=== PATIENT | female | born 1995 | race African-American/Black ===

== ENCOUNTER → 2019-03-23 | Outpatient (CLI) | payer MEDICAID ==
--- NOTE | 2019-03-23 15:14 | RADIOLOGY REPORT (SQ) ---
EXAM DESCRIPTION: U/S OB 14+ TRNABD 1GES W/O DOP COMPLETED DATE/TIME: 03/23/2019 2:08 pm REASON FOR STUDY: ENCTR FOR SUPERVISION OF OTHER NORMAL , 3RD TRIMESTER (Z34.83) Z34.83 EN COUNTER FOR SUPRVSN OF NORMAL , THIRD TRIM COMPARISON: None. TECHNIQUE: Static and Dynamic grayscale imaging performed of gravid uterus using transabdominal appr oach. Additional selected color Doppler and spectral images recorded. All stored on PACS. LIMITATIONS: None. FINDINGS: FETUSES SEEN:1 EGA: 35 week 3 day. Calculated using BPD,FL,HC,AC documented on images. Clinical dates 36 week 2 day . ZULY: 04/24/2019. EFW: 2,809 grams PERCENTILE: 42%. SANJUANA: 23.2 cm. PLACENTA: Anterior. GRADE: I PRESENTATION: Cephalic. ANATOMY: HEART RATE: 145 beats per minute. FOUR CHAMBER HEART: Visualized. THREE VESSEL CORD: Yes. CORD INSERTION: Visualized. KIDNEYS AND BLADDER: Mild prominence of the renal pelvis of both kidneys. Bladder unremarkable. STOMACH: Visualized. Appears normal. SPINE: Normal as visualized. BRAIN AND LATERAL VENTRICLES: Visualized. Appear normal. OTHER: No other significant finding. MATERNAL ADNEXA: Maternal ovaries not visualized. CERVICAL LENGTH: Not visualized. OTHER: No other significant finding. IMPRESSION: LIVING INTRAUTERINE . ESTIMATED GESTATIONAL AGE 35 WEEK 3 DAY. MILD PROMINENCE OF THE RENAL PELVIS OF BOTH KIDNEYS. WILL NEED FOLLOW-UP ULTRASOUND OF THE KIDNEYS T O RE-EVALUATE THIS FINDING. Trimester of : Third trimester - 28 weeks to delivery. TECHNICAL DOCUMENTATION: JOB ID: [id number]- All Rights Reserved Reading location - IP/workstation name: [email or web address]
== END ==
LOC: RAD 13:08
PROVIDERS: ATTEND Midwife
DX: Z34.83 Encounter for supervision of other normal pregnancy, third trimester (principal); Z3A.35 35 weeks gestation of pregnancy
CPT/HCPCS: 76805

== ENCOUNTER 2019-04-08 03:23 | Inpatient (IN) | payer MEDICAID ==
[2019-04-08] MEDS ORDERED: LIDOCAINE 1% INJ-PF (10 MG/ML) 30 ML SDV ONE (03:40)
[2019-04-08] MEDS ORDERED: OXYTOCIN/NORMAL SALINE 20 UNIT/1,000 ML RTUINJ ONE (03:40)
[2019-04-08] MEDS ORDERED: MISOPROSTOL 0.2 MG TABLET ONE (03:40)
[2019-04-08] MEDS ORDERED: PENICILLIN G-K 5 MILLION UNIT VIAL ONE (03:41)
[2019-04-08] MEDS ORDERED: PENICILLIN G POTASSIUM 5,000,000 UNIT in DEXTROSE 5%-WATER 100 ML IV ONE (03:43)
[2019-04-08] MEDS ORDERED: RINGERS SOLUTION,LACTATED 1,000 ML IV PRN (03:43)
[2019-04-08 04:38] LABS: APPEARANCE,URINE CLEAR; BILIRUBIN,URINE NEGATIVE (NEGATIVE); COLOR,URINE YELLOW; GLUCOSE, URINE NEGATIVE (NEGATIVE); KETONES,URINE NEGATIVE (NEGATIVE); LEUKOCYTE ESTERASE,URINE SMALL (NEGATIVE); NITRITE,URINE NEGATIVE (NEGATIVE); PROTEIN,URINE 30 mg/dL (NEGATIVE); URINE SPECIFIC GRAVITY 1.012; UROBILINOGEN,URINE NEGATIVE mg/dL (<2.0)
[2019-04-08 04:55] LABS: URINE AMPHETAMINES SCREEN NEGATIVE; URINE BARBITURATES SCREEN NEGATIVE; URINE BENZODIAZEPINES SCREEN NEGATIVE; URINE COCAINE SCREEN NEGATIVE; URINE MARIJUANA (THC) SCREEN NEGATIVE; URINE METHADONE SCREEN NEGATIVE; URINE PHENCYCLIDINE SCREEN NEGATIVE
[2019-04-08 05:25] LABS: ABSOLUTE LYMPHOCYTES (AUTO) 1.4 10^3/uL (0.5-4.7); ABSOLUTE MONOCYTES (AUTO) 0.7 10^3/uL (0.1-1.4); ABSOLUTE NEUT (AUTO) 4.7 10^3/uL (1.7-8.2); BASOPHILS % (AUTO) 0.2 % (0-2); EOSINOPHILS % (AUTO) 0.4 % (0-6); HEMOGLOBIN 11.3 g/dL (12.0-15.5); LYMPHOCYTES % (AUTO) 19.8 % (13-45); MEAN CORPUSCULAR HEMOGLOBIN 27.7 pg (27.0-33.4); MEAN CORPUSCULAR HGB CONC 33.3 g/dL (32.0-36.0); MEAN CORPUSCULAR VOLUME 83 fl (80-97); MONOCYTES % (AUTO) 10.6 % (3-13); PLATELET COUNT 158 10^3/uL (150-450); RED BLOOD COUNT 4.08 10^6/uL (3.72-5.28); RED CELL DISTRIBUTION WIDTH 14.2 % (11.5-14.0); TOTAL CELLS COUNTED % (AUTO) 100 %; WHITE BLOOD COUNT 6.8 10^3/uL (4.0-10.5)
--- NOTE | 2019-04-08 06:19 | Admission Physical ---
Datetime Report Generated by CPN: 04/08/2019 06:19 CURRENT ADMISSION Chief Complaint: Uterine Contractions Indication for Induction: Not Applicable Admit Impression : Term, Intrauterine ; Active Labor Admit Plan: Admit to Unit ALLERGIES Medication Allergies: No Known Allergies (04/08/2019) OBSTETRICAL HISTORY EDC: 05/01/2019 00:00 : 2 Para: 1 Gestational Diabetes: No Rh Sensitization: No Incompetent Cervix: No IKER: No Infertility: No ART Treatment: No Uterine Anomaly: No IUGR: No Hx Previous C/S: No Macrosomia: No Hx Loss/Stillborn: No PIH: No Hx : No Placenta Previa/Abruption: No Depression/PP Depression: No PTL/PROM: No Post Hemorrhage: No Current Procedures: Ultrasound; NST Obstetrical History Comments: 01/2018 epidural baby girl g2 - current - GBS +, renal distension noted on u/s SEE RECORDS Alcohol: No Marijuana : No Cocaine: No Other Illicit Drugs: No Cigarettes: Never Smoker. 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 Surgery: No Heart Disease: No Hosp/Surgery: No Autoimmune Disorder: No Anesthetic Complications: No Kidney Disease: No Abnormal Pap Smear: No Neuro/Epilepsy: No Psychiatric Disorders: No Other Medical Diseases: No Hepatitis/Liver Disease: No Significant Family History: No Varicosities/Phlebitis: No Trauma/Violence : No Thyroid Dysfunction: No INFECTIOUS HISTORY Gonorrhea: No Genital Herpes: No Chlamydia: No Tuberculosis: No Syphilis: No Hepatitis: No HIV/AIDS Exposure: No Rash or Viral Illness: No HPV: No PHYSICAL EXAM General: Normal HEENT: Normal Neurologic: Normal Thyroid: Normal Heart: Normal Lungs: Normal Breast: Deferred Back: Normal Abdomen: Normal Genitourinary Exam: Normal Extremities: Normal DTRs: Normal Pelvic Type: Adequate Vital Signs: Reviewed VAGINAL EXAM Dilatation: 8 Effacement: 100 Station: 0 MEMBRANES Pooling: Negative Membranes: Intact FETUS A EGA: 36.5 Monitoring: External US FHR- Baseline: 120 Decelerations: None FHR Category: Category I Presentation: Vertex Admit Comment: Admit for labor PLANS FOR LABOR AND DELIVERY Labor and Delivery: None Pain Management: None Feeding Preference: Breast Benefit of Breast Feed Discussed: Yes Circumcision: Yes INFORMED CONSENT Signature: with User ID: [email or web address]
[2019-04-08] MEDS ORDERED: PROMETHAZINE HCL 25 MG TABLET PO PRN (06:57)
[2019-04-08] MEDS ORDERED: PROMETHAZINE HCL 25 MG SUPP.RECT PR PRN (06:57)
[2019-04-08] MEDS ORDERED: GLYCERIN/WITCH HAZEL LEAF 1 EACH MED..WIPE TP PRN (06:57)
[2019-04-08] MEDS ORDERED: ACETAMINOPHEN 650 MG SUPP.RECT PR PRN (06:57)
[2019-04-08] MEDS ORDERED: PSEUDOEPHEDRINE HCL 30 MG TABLET PO PRN (06:57)
[2019-04-08] MEDS ORDERED: BENZOCAINE/MENTHOL AEROSOL SPRAY 56 ML TOP PRN (06:57)
[2019-04-08] MEDS ORDERED: ZOLPIDEM TARTRATE 5 MG TABLET PO PRN (06:57)
[2019-04-08] MEDS ORDERED: DIBUCAINE 1% OINTMENT 28 GM TP PRN (06:57)
[2019-04-08] MEDS ORDERED: MEASLES,MUMPS&RUBELLA VACC/PF 0.5 ML VIAL SUBCUT PRN (06:57)
[2019-04-08] MEDS ORDERED: PROMETHAZINE HCL INJ 25 MG/1 ML VIAL IV PRN (06:57)
[2019-04-08] MEDS ORDERED: NA PHOS,M-B/NA PHOS,DI-BA (ADULT) 133 ML ENEMA PR PRN (06:57)
[2019-04-08] MEDS ORDERED: MAGNESIUM HYDROXIDE SUSP 30 ML UDCUP PO PRN (06:57)
[2019-04-08] MEDS ORDERED: DIPHENHYDRAMINE HCL 25 MG CAPSULE PO PRN (06:57)
[2019-04-08] MEDS ORDERED: ACETAMINOPHEN WITH CODEINE #3 TABLET PO PRN ×2 (06:57)
[2019-04-08] MEDS ORDERED: OXYTOCIN/NORMAL SALINE 20 UNIT/1,000 ML RTUINJ IV PRN (06:57)
[2019-04-08] MEDS ORDERED: DIPH/PERTUSS(ACELL)/TETANUS VAC/PF 0.5 ML SYR (>=10YO) IM PRN (06:57)
[2019-04-08] MEDS: PENICILLIN G POTASSIUM 2,500,000 UNIT in DEXTROSE 5%-WATER 50 ML IV SCH ×4 (08:34→20:51)
[2019-04-08] MEDS ORDERED: IBUPROFEN 800 MG TABLET ONE (08:38)
--- NOTE | 2019-04-08 08:49 | Delivery Summary ---
Del Sum A-C Datetime Report Generated by CPN: 04/08/2019 08:48 DELIVERY PERSONNEL DELIVERY PERSONNEL: [id number] Delivery Doctor:: Carmen Spencer MD Labor and Delivery Nurse:: Afshan Montgomery RN Labor and Delivery Nurse:: Sandra Melendez RN Roll Press Operator/TOP FRAME MAKER: Johannayuli Ledesma, ST MATERNAL INFORMATION Delivery Anesthesia: None Medications After Delivery: Pitocin Bolus-Please Comment Meds After Delivery Comment: pitocin bolus 20 units in 1000 ml NSS Estimated Blood Loss (ml): 250 Maternal Complications: None Complication Details: labor LABOR SUMMARY EDC: 05/01/2019 00:00 No. Babies in Womb: 1 Attempted: No Labor Anesthesia: None LABOR INFORMATION Reason for Induction: Not Applicable Onset of Labor: 04/08/2019 00:00 Complete Dilatation: 04/08/2019 06:40 Oxytocin: N/A Group B Beta Strep: positive Antibiotics # of Doses: 1 Antibiotics Time of Last Dose: 348 Name of Antibiotic Given: PCN Steroids Given: None Reason Steroids Not Administered: Not Applicable MEMBRANES Membranes Rupture Method: Artificial Rupture of Membranes: 04/08/2019 06:40 Length of Rupture (hr): 0.13 Amniotic Fluid Color: Clear Amniotic Fluid Amount: Moderate Amniotic Fluid Odor: Normal STAGES OF LABOR Stage 1 hr: 6 Stage 1 min: 40 Stage 2 hr: 0 Stage 2 min: 8 Stage 3 hr: 0 Stage 3 min: 4 Total Time in Labor hr: 6 Total Time in Labor min: 52 VAGINAL DELIVERY Episiotomy: None Laceration #1: None Laceration Extension #1: N/A Laceration #2: None Laceration Extension #2: N/A Laceration #3: None Laceration Extension #3: N/A Laceration Repair: Not Applicable Laceration Repair Note: No laceration in need of repair Sponge Count Correct: Vaginal Sweep Performed Sharps Count Correct: Yes CSECTION DELIVERY Primary Indication: N/A Secondary Indication: N/A CSection Incidence: N/A Labor: N/A Elective: N/A CSection Incision: N/A BABY A INFORMATION Infant Delivery Date/Time: 04/08/2019 06:48 Method of Delivery: Vaginal Born in Route : No : N/A Forceps: N/A Vacuum Extraction: N/A Shoulder Dystocia : No PRESENTATION/POSITION BABY A Presentation: Cephalic Cephalic Presentation: Vertex Vertex Position: Right Occipital Anterior Breech Presentation: N/A PLACENTA INFORMATION BABY A Placenta Delivery Time : 04/08/2019 06:52 Placenta Method of Delivery: Spontaneous Placenta Status: Delivered SCORES BABY A Heart Rate 1 min: >100 bpm Resp Effort 1 min: Good Cry Reflex Irritability 1 min: Cough or Sneeze or Pulls Away Muscle Tone 1 min: Active Motion Color 1 min: Blue/Pale Resuscitation Effort 1 min: Tactile Stimulation SCORE 1 MIN: 8 Heart Rate 5 min: >100 bpm Resp Effort 5 min: Good Cry Reflex Irritability 5 min: Cough or Sneeze or Pulls Away Muscle Tone 5 min: Active Motion Color 5 min: Body Point Roberts, Extremities Blue Resuscitation Effort 5 min: Tactile Stimulation SCORE 5 MIN: 9 INFANT INFORMATION BABY A Gestational Age at Delivery: 36.5 Gestational Status: Late - 34- 36.6 Weeks Infant Outcome : Liveborn Infant Condition : Stable Sex: Male IDENTIFICATION BABY A Infant Verification Date/Time: 04/08/2019 07:34 ID Band Number: [id number] Mother's Name Verified: Yes Infant RN Verifying : REllie Casas, RN/H. Tigre, CNM WEIGHT/LENGTH BABY A Birthweight (gm): 3040 Infant Weight (lb): 6 Weight (oz): 11 Length (in): 18.75 Infant Length (cm): 47.63 CORD INFORMATION BABY A No. Cord Vessels: 3 Nuchal Cord : N/A Cord Blood Taken: Yes-For Eval (Mom's Blood Type - or O+) Infant Suction: None ASSESSMENT BABY A Infant Complications: None Physical Findings at Delivery: Within Normal Limits Respirations: Appears Normal Skin to Skin: Yes Skin to Skin Time (min): 60 Transferred To: Remains with Mother BABY B INFORMATION : N/A SIGNATURES Signature: with User ID: [email or web address]
[2019-04-08] MEDS: PRENATAL VITAMIN W DHA CAPSULE PO SCH (09:38)
[2019-04-08] MEDS: SENNOSIDES/DOCUSATE 8.6-50 MG 1 EACH TABLET PO SCH (09:38)
[2019-04-08] MEDS: DOCUSATE SODIUM 100 MG CAPSULE PO SCH ×2 (09:38→18:03)
[2019-04-08] MEDS: FERROUS SULFATE 325 MG TABLET PO SCH ×2 (09:38→18:03)
[2019-04-08] MEDS: FAMOTIDINE 20 MG TABLET PO SCH ×2 (09:40→21:09)
[2019-04-08] MEDS: IBUPROFEN 800 MG TABLET PO SCH ×2 (14:59→21:07)
[2019-04-08] MEDS ORDERED: ACETAMINOPHEN 325 MG TABLET PO PRN (21:00)
[2019-04-09] MEDS: PENICILLIN G POTASSIUM 2,500,000 UNIT in DEXTROSE 5%-WATER 50 ML IV SCH ×2 (01:03→05:06)
[2019-04-09] MEDS: IBUPROFEN 800 MG TABLET PO SCH ×3 (05:07→21:29)
[2019-04-09 07:35] LABS: HEMATOCRIT 31.3 % (36.0-47.0); HEMOGLOBIN 10.6 g/dL (12.0-15.5); MEAN CORPUSCULAR HGB CONC 33.8 g/dL (32.0-36.0); MEAN CORPUSCULAR VOLUME 83 fl (80-97); PLATELET COUNT 153 10^3/uL (150-450); RED BLOOD COUNT 3.77 10^6/uL (3.72-5.28); RED CELL DISTRIBUTION WIDTH 14.6 % (11.5-14.0); WHITE BLOOD COUNT 8.6 10^3/uL (4.0-10.5)
--- NOTE | 2019-04-09 09:34 | PDOC PROGRESS REPORT ---
Subjective-OB Progress Note for:: 04/09/19 Subjective: Doing well, feeding baby, desires circumcision, will pay in AM, voiding, scant lochia Physical Exam (OB) Vital Signs: Temp Pulse Resp BP Pulse Ox 98.4 F 62 16 112/63 99 04/09/19 07:33 04/09/19 07:33 04/09/19 07:33 04/09/19 07:33 04/09/19 07:33 Intake & Output 04/08/19 04/09/19 04/10/19 06:59 06:59 06:59 Intake Total 300 Balance 300 Weight 67 kg - PIH/Pre-Eclampsia DTR's: 1 + Clonus: Negative Headache: Absent Epigastric Pain: No Visual Changes: No - Lochia Lochia Amount: Small 10-25 ml Lochia Color: Rubra/Red - Abdomen Description: Soft Hernia Present: No Fundal Description: Firm, Midline Fundal Height: u/u - u/2 Objective-Diagnostic Laboratory: 04/09/19 06:56 04/09/19 06:56 WBC 8.6 RBC 3.77 Hgb 10.6 L Hct 31.3 L MCV 83 MCH 28.0 MCHC 33.8 RDW 14.6 H Plt Count 153 Assessment and Plan(PN) - Assessment and Plan (1) Late care Is this a current diagnosis for this admission?: Yes (2) delivery Is this a current diagnosis for this admission?: Yes (3) GBS (group B Streptococcus carrier), +RV culture, currently Is this a current diagnosis for this admission?: Yes - Time Spent with Patient Time with patient: Less than 15 minutes Medications reviewed and adjusted accordingly: Yes - Disposition Anticipated Discharge: Home Within: within 24 hours
[2019-04-09] MEDS: SENNOSIDES/DOCUSATE 8.6-50 MG 1 EACH TABLET PO SCH (10:03)
[2019-04-09] MEDS: DOCUSATE SODIUM 100 MG CAPSULE PO SCH ×2 (10:03→17:17)
[2019-04-09] MEDS: FAMOTIDINE 20 MG TABLET PO SCH ×2 (10:03→21:29)
[2019-04-09] MEDS: FERROUS SULFATE 325 MG TABLET PO SCH ×2 (10:03→17:17)
[2019-04-09] MEDS: PRENATAL VITAMIN W DHA CAPSULE PO SCH (10:03)
[2019-04-10] MEDS: IBUPROFEN 800 MG TABLET PO SCH ×2 (06:27→13:57)
[2019-04-10 07:38] VITALS: BP 112/61
--- NOTE | 2019-04-10 08:58 | PDOC PROGRESS REPORT ---
Subjective-OB Progress Note for:: 04/10/19 Subjective: Doing well, no c/o, family at [facility], ready to go home, , desires circumcision Physical Exam (OB) Vital Signs: Temp Pulse Resp BP Pulse Ox 97.9 F 74 16 112/61 100 04/10/19 07:16 04/10/19 07:16 04/10/19 07:16 04/10/19 07:16 04/10/19 07:16 Intake & Output 04/09/19 04/10/19 04/11/19 06:59 06:59 06:59 Intake Total 300 Balance 300 Weight 67 kg - PIH/Pre-Eclampsia DTR's: 1 + Clonus: Negative Headache: Absent Epigastric Pain: No Visual Changes: No - Lochia Lochia Amount: Scant < 10 ml Lochia Color: Rubra/Red - Abdomen Description: Soft Hernia Present: No Fundal Description: Firm, Midline Fundal Height: u/u - u/2 Objective-Diagnostic Laboratory: 04/09/19 06:56 Assessment and Plan(PN) - Assessment and Plan (1) Late care Is this a current diagnosis for this admission?: Yes (2) delivery Is this a current diagnosis for this admission?: Yes (3) GBS (group B Streptococcus carrier), +RV culture, currently Is this a current diagnosis for this admission?: Yes - Time Spent with Patient Time with patient: Less than 15 minutes Medications reviewed and adjusted accordingly: Yes - Disposition Anticipated Discharge: Home Within: within 24 hours
--- NOTE | 2019-04-10 09:03 | PDOC DISCHARGE SUMMARY ---
Impression - Admit/DC Date/PCP Admission Date/Primary Care Provider: 04/08/19 03:44 WILLIAMS POST CNM Discharge Date: 04/10/19 - Discharge Diagnosis (1) Late care Is this a current diagnosis for this admission?: Yes (2) delivery Is this a current diagnosis for this admission?: Yes (3) GBS (group B Streptococcus carrier), +RV culture, currently Is this a current diagnosis for this admission?: Yes - Additional Information Resuscitation Status: Full Code Discharge Diet: As Tolerated, Regular Discharge Activity: Activity As Tolerated, Pelvic Rest Referrals: REEMA POST MD [ACTIVE STAFF] - (wha 4 weeks) HPI Gestational Age: 36+5 Reason(s) for Admission: Onset of Labor, Group B Strep Positive Procedures: Ultrasound Intrapartum Procedure(s): Spontaneous Vaginal Delivery - boy, 6-11, 8/9 apgars Hospital Course Hospital Course: routine Results Laboratory Results: WBC 8.6 10^3/uL (4.0-10.5) 04/09/19 06:56 RBC 3.77 10^6/uL (3.72-5.28) 04/09/19 06:56 Hgb 10.6 g/dL (12.0-15.5) L 04/09/19 06:56 Hct 31.3 % (36.0-47.0) L 04/09/19 06:56 MCV 83 fl (80-97) 04/09/19 06:56 MCH 28.0 pg (27.0-33.4) 04/09/19 06:56 MCHC 33.8 g/dL (32.0-36.0) 04/09/19 06:56 RDW 14.6 % (11.5-14.0) H 04/09/19 06:56 Plt Count 153 10^3/uL (150-450) 04/09/19 06:56 Lymph % (Auto) 19.8 % (13-45) 04/08/19 04:34 [place] % (Auto) 10.6 % (3-13) 04/08/19 04:34 Eos % (Auto) 0.4 % (0-6) 04/08/19 04:34 Baso % (Auto) 0.2 % (0-2) 04/08/19 04:34 Absolute Neuts (auto) 4.7 10^3/uL (1.7-8.2) 04/08/19 04:34 Absolute Lymphs (auto) 1.4 10^3/uL (0.5-4.7) 04/08/19 04:34 Absolute Monos (auto) 0.7 10^3/uL (0.1-1.4) 04/08/19 04:34 Absolute Eos (auto) 0.0 10^3/uL (0.0-0.6) 04/08/19 04:34 Absolute Basos (auto) 0.0 10^3/uL (0.0-0.2) 04/08/19 04:34 Seg Neutrophils % 69.0 % (42-78) 04/08/19 04:34 Urine Color YELLOW 04/08/19 03:33 Urine Appearance CLEAR 04/08/19 03:33 Urine pH 7.0 (5.0-9.0) 04/08/19 03:33 Ur Specific [place] 1.012 04/08/19 03:33 Urine Protein 30 mg/dL (NEGATIVE) H 04/08/19 03:33 Urine Glucose (UA) NEGATIVE mg/dL (NEGATIVE) 04/08/19 03:33 Urine Ketones NEGATIVE mg/dL (NEGATIVE) 04/08/19 03:33 Urine Blood LARGE (NEGATIVE) H 04/08/19 03:33 Urine Nitrite NEGATIVE (NEGATIVE) 04/08/19 03:33 Urine Bilirubin NEGATIVE (NEGATIVE) 04/08/19 03:33 Urine Urobilinogen NEGATIVE mg/dL (<2.0) 04/08/19 03:33 Ur Leukocyte Esterase SMALL (NEGATIVE) H 04/08/19 03:33 Urine Ascorbic Acid NEGATIVE (NEGATIVE) 04/08/19 03:33 Urine Opiates Screen NEGATIVE 04/08/19 03:33 Urine Methadone Screen NEGATIVE 04/08/19 03:33 Ur Barbiturates Screen NEGATIVE 04/08/19 03:33 Ur Phencyclidine Scrn NEGATIVE 04/08/19 03:33 Ur Amphetamines Screen NEGATIVE 04/08/19 03:33 U Benzodiazepines Scrn NEGATIVE 04/08/19 03:33 Urine Cocaine Screen NEGATIVE 04/08/19 03:33 U Marijuana (THC) Screen NEGATIVE 04/08/19 03:33 RPR NONREACTIVE (NONREACTIVE) 04/08/19 04:34 Blood Type O POSITIVE 04/08/19 04:34 Antibody Screen NEGATIVE 04/08/19 04:34 Plan Health Concerns: routine Plan of Treatment: routine PP care, Goals: no complications Time Spent: Less than 30 Minutes
[2019-04-10] MEDS: FAMOTIDINE 20 MG TABLET PO SCH (09:31)
[2019-04-10] MEDS: DOCUSATE SODIUM 100 MG CAPSULE PO SCH (09:31)
[2019-04-10] MEDS: PRENATAL VITAMIN W DHA CAPSULE PO SCH (09:31)
[2019-04-10] MEDS: FERROUS SULFATE 325 MG TABLET PO SCH (09:31)
[2019-04-10] MEDS: SENNOSIDES/DOCUSATE 8.6-50 MG 1 EACH TABLET PO SCH (12:15)
== END 2019-04-10 14:22 | disposition home or self-care (01) | DRG 807 ==
LOC: LC 03:23 → LR 03:44 → 2S 09:23
PROVIDERS: ADMIT Obstetrics & Gynecology; ATTEND Obstetrics & Gynecology
PROC: 10E0XZZ Delivery of Products of Conception, External Approach (ICD-10-PCS; principal; 2019-04-08)
DX: O60.14X0 Preterm labor third trimester with preterm delivery third trimester, not applicable or unspecified (principal); Z37.0 Single live birth; O99.824 Streptococcus B carrier state complicating childbirth; Z3A.36 36 weeks gestation of pregnancy
CPT/HCPCS: 36415; 80307; 81005; 85025; 85027; 86592; 86850; 86900; 86901; J2540; J2590; J3490; J7060